=== PATIENT | female | born 1995 | race Hispanic/Latino ===

== ENCOUNTER → 2020-04-09 | Day surgery (SDC) | payer OTHER ==
[~2020-04-09] MED LIST: BUPIVACAINE 0.25% 30ML SDV ONE; DEXAMETHASONE SOD PHOS INJ 4 MG/ML VIAL ONE; FENTANYL CITRATE/PF 100MCG/2 ML INJ ONE; GLYCOPYRROLATE INJ 0.2 MG/ML VIAL ONE; LIDOCAINE HCL 2% LOCAL INJ 5 ML SDV VIAL INJ ONE; MIDAZOLAM HCL 2 MG/2 ML VIAL ONE; NEOSTIGMINE 1 MG/ML 10ML VIAL ONE; ONDANSETRON HCL INJ 2MG/ML 2ML 2 MG/ML VIAL ONE; OXYMETAZOLINE HCL 0.05% NAS 1 SPRAY BTL ONE; PROPOFOL IV EMULSION 10 MG/ML 20 ML VIAL ONE; SEVOFLURANE INHAL SOLN 250 ML PEN BTL ONE
--- NOTE | 2020-04-09 12:38 | Operative Report ---
DATE OF PROCEDURE: 04/09/2020 SURGEON: Roly Crane MD PREOPERATIVE DIAGNOSES: Chronic adenotonsillitis, adenotonsillar hypertrophy. POSTOPERATIVE DIAGNOSES: Chronic adenotonsillitis, adenotonsillar hypertrophy. PROCEDURES: Tonsillectomy and adenoidectomy. SIGNIFICANT FINDINGS: Scarred, enlarged tonsils (3+/3+); adenoids were moderately enlarged. FOREIGN LANGUAGES PROFESSOR: None. ANESTHESIA: General endotracheal tube anesthesia. SPECIMENS REMOVED: Tonsils (adenoids were coblated). ESTIMATED BLOOD LOSS: Less than 1 mL. COMPLICATIONS: None. INDICATIONS: The patient is a 24-year-old Latin-[place] female with 3 years history of frequent throat infections occurring 6 to 7 times per year. Each episode manifests as throat pain, odynophagia, enlarged erythematous, exudative tonsils, enlarged tender tonsillar lymphadenopathy, fever, postnasal drip, mild hoarseness. She has been refractory to multiple course of antibiotics. She has had no previous throat or neck surgery. She is a nonsmoker. 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 On examination, her tonsils are 3+/3+ and appear to be scarred from previous infection. She is scheduled for tonsillectomy and adenoidectomy for the treatment of chronic adenotonsillitis and adenotonsillar hypertrophy. Risks and complications of the procedures were thoroughly discussed with the patient and they include infection, bleeding, scarring, failure to improve, need for additional operations, persistent throat problems, damage to teeth, gums, tongue, and lips; chronic pain, numbness of the tongue, voice changes, inability to smell or taste, leakage of fluid through the nose while drinking liquids, scarring of the pharynx resulting in permanent worse nasal obstruction, damage to the eustachian tube orifices causing middle ear fluid and hearing loss, need for blood transfusions, damage to surrounding nerves, blood vessels, and muscles. She fully understands and gives consent. DESCRIPTION OF PROCEDURE: The patient was taken to the operating room and placed supine on the operating table, where general anesthesia was achieved through orotracheal intubation. Eyes were taped. Shoulder roll was placed. Head and body were draped, table was turned 90 degrees with the head towards the surgeon. Decadron was administered. A Phi-Matthew mouth gag was inserted without difficulty and placed into suspension on the [place] stand. There was no evidence of bifid uvula, diastasis of the muscular uvula, or notched hard palate. Red rubber catheters were then inserted into the nose and brought out through the mouth to retract the soft palate. Examination of the nasopharynx revealed the adenoids to be moderately hypertrophied. Tonsils were 3+/3+ bilaterally and scarred. The left tonsil was grasped with a tonsillar Allis clamp and was removed with the ArthroCare Coblator on a setting of 6 on cut mode, taking care to stay right on the capsule of the tonsil. Right tonsil was removed in the same way. Both tonsillar beds were significantly scarred from previous infection. Hemostasis was obtained with the Coblator on a setting of 3 on coag mode; this was performed bilaterally. There was no evidence of bleeding with Valsalva maneuver. The adenoids were then removed with the ArthroCare Coblator on a setting of 8 on cut mode, taking care to avoid trauma to the torus tubarius bilaterally. Hemostasis was obtained with the Coblator on setting of 3 on coag mode. Following this injection with 2 mL of 0.25% plain Marcaine was injected into the free edges of the anterior and posterior tonsillar pillars. Thorough irrigation was then performed. Stomach contents were suctioned with an NG tube. The red rubber catheters and Phi-Matthew mouth gag were then removed without difficulty, revealing no trauma to the teeth, gums, tongue, and lips. The patient was awakened in the operating room, extubated, and taken to the recovery room in good condition. MD Basim MoraKY/BRIANA /[id number] VINNY
[2020-04-09 12:45] VITALS: BP 113/78
== END | disposition home or self-care (01) ==
LOC: OR 08:19
PROVIDERS: ATTEND Otolaryngology
DX: J35.03 Chronic tonsillitis and adenoiditis (principal); Z01.812 Encounter for preprocedural laboratory examination; Z20.828 Contact with and (suspected) exposure to other viral communicable diseases
CPT/HCPCS: 42821; 81025; 88304; J1100; J2001; J2250; J2405; J2704; J2710; J3010; U0002